=== PATIENT | male | born 1960 | race Caucasian/White ===

== ENCOUNTER 2017-06-19 06:07 | Day surgery (SDC) | payer OTHER ==
[2017-06-19] MEDS ORDERED: COLACE100 MG PO (08:02)
[2017-06-19] MEDS ORDERED: PERCOCET 5-3251 EACH PO (08:02)
== END 2017-06-19 11:35 | disposition home or self-care (01) ==
LOC: CIR.AMB 06:07
DX: K64.5 Perianal venous thrombosis (principal); K62.89 Other specified diseases of anus and rectum

== ENCOUNTER 2017-11-22 08:30 | Inpatient (IN) | payer OTHER ==
[~2017-11-22] VITALS: Ht 190.5 cm; Wt 93.0 kg
[~2017-11-22 08:30] MED LIST: COLACE100 MG PO; PERCOCET 5-3251 EACH PO
[2017-11-30] MEDS ORDERED: NEURONTIN300 MG PO (17:36)
[2017-11-30] MEDS ORDERED: HYOSCYAMINE0.125 M1 SL (17:36)
[2017-11-30] MEDS ORDERED: OXYC1TAB9 PO (17:36)
== END 2017-11-30 18:33 | disposition home or self-care (01) | DRG 331 ==
LOC: RECOVERY 08:30 → O/R 11-28 06:15 → SURG 11-28 08:30
PROVIDERS: Surgery
PROC: 07TC4ZZ Resection of Pelvis Lymphatic, Percutaneous Endoscopic Approach (ICD-10-PCS; 2017-11-28)
PROC: 0DTF4ZZ Resection of Right Large Intestine, Percutaneous Endoscopic Approach (ICD-10-PCS; principal; 2017-11-28 10:45)
DX: D12.0 Benign neoplasm of cecum (principal); R73.01 Impaired fasting glucose; D50.0 Iron deficiency anemia secondary to blood loss (chronic)